=== PATIENT | female | born 1990 | race Caucasian/White ===

== ENCOUNTER 2017-02-01 15:30 | Emergency (ER) | payer SELFPAY ==
[~2017-02-01] VITALS: Ht 162.6 cm; Wt 51.5 kg
[~2017-02-01 15:30] MED LIST: FERR-31; PREN-39
[2017-02-01 15:34] VITALS: Ht 162.6 cm; Wt 51.5 kg
--- NOTE | 2017-02-01 18:38 | ERD ---
ER Documentation Chief Complaint Date/Time DATE: 02/01/17 TIME: 18:36 Chief Complaint LT LOWER ABD PAIN , 12 WEEKS PREG , NO VAG BLEED HPI T his is a 26-year-old female presents to the emergency department today complaining of some left-sided intermittent abdominal pain. States that sometimes when she gets the pain goes to her back. . States she is approximately 12 weeks and her last [facility] [employer] [facility] appointment was 2 3 weeks ago and everything was normal. States her next appointment is next week at [facility].Denies any dysuria, fevers or chills, vaginal bleeding. States she has not taken any medication for the pain.States she is worried she might lose her baby. ROS All systems reviewed and are negative except as per history of present illness. Medications Home Meds Active Scripts Acetaminophen* (Tylophen*) 500 Mg Capsule, 1 CAP PO Q6H Y for PAIN AND OR ELEVATED TEMP, #30 CAP Prov:ANISA CALLEJAS PA-C 02/01/17 Reported Medications Ferrous Sulfate (Iron Supplement) 1 Tab Tablet 11/07/10 Vits W-Ca,Fe,Fa(<1MG) ( Vitamins) 1 Tab Tablet 11/07/10 Allergies Allergies: Coded Allergies: No Known Drug Allergies (Verified Allergy, Mild, 11/25/10) Unknown: Unable to obtain (Verified , 11/24/10) PMhx/Soc History of Surgery: Yes (caesarian section 2010) Anesthesia Reaction: No Hx Neurological Disorder: No Hx Respiratory Disorders: No Hx Cardiac Disorders: No Hx Psychiatric Problems: No Hx Miscellaneous Medical Probl: No Hx Alcohol Use: No Hx Substance Use: No Hx Tobacco Use: No Physical Exam Vitals Vital Signs Date Time Temp Pulse Resp B/P Pulse Ox O2 Delivery O2 Flow Rate FiO2 02/01/17 15:34 98.1 90 18 108/64 98 Physical Exam Const: NAD Head: Atraumatic Eyes: Normal Conjunctiva ENT: Normal External Ears, Nose and Mouth. Neck: Full range of motion..~ No meningismus. Resp: Clear to auscultation bilaterally Cardio: Regular rate and rhythm, no murmurs Abd: Soft, mild left sided pelvic tenderness non distended. Normal bowel sounds. No tenderness at [place] Skin: No petechiae or rashes Back: No midline or flank tenderness Ext: No cyanosis, or edema Neur: Awake and alert Psych: Normal Mood and Affect Result Diagram: 02/01/17 1840 Results 24 hrs Laboratory Tests Test 02/01/17 18:40 White Blood Count 9.910^3/ul Red Blood Count 3.6610^6/ul Hemoglobin 12.2g/dl Hematocrit 34.7% Mean Corpuscular Volume 94.8fl Mean Corpuscular Hemoglobin 33.3pg Mean Corpuscular Hemoglobin Concent 35.2g/dl Red Cell Distribution Width 12.5% Platelet Count 64831^3/UL Mean Platelet Volume 11.3fl Neutrophils % 82.8% Lymphocytes % 11.2% Monocytes % 4.1% Eosinophils % 1.1% Basophils % 0.3% Nucleated Red Blood Cells % 0.0/100WBC Neutrophils # (Manual) 8.210^3/ul Lymphocytes # 1.110^3/ul Monocytes # 0.410^3/ul Eosinophils # 0.110^3/ul Basophils # 0.010^3/ul Nucleated Red Blood Cells # 0.010^3/ul Urine Color YELLOW Urine Clarity SLIGHTLY CLOUDY Urine pH 5.0 Urine Specific [place] 1.021 Urine Ketones 2+mg/dL Urine Nitrite NEGATIVEmg/dL Urine Bilirubin NEGATIVEmg/dL Urine Urobilinogen NEGATIVEmg/dL Urine Leukocyte Esterase NEGATIVELeu/ul Urine Microscopic RBC 7/HPF Urine Microscopic WBC 2/HPF Urine Squamous Epithelial Cells FEW/HPF Urine Mucus MANY/HPF Urine Hemoglobin 2+mg/dL Urine Glucose NEGATIVEmg/dL Urine Total Protein NEGATIVEmg/dl Beta HCG, Quantitative 675388.0mIU/ml DIAGNOSTIC IMAGING REPORT Patient: YASMANI IBRAHIM : 1990 Age: 26 Sex: F MR #: [id number] DOS: 02/01/17 1828 Ordering MD: ANISA CALLEJAS PA-C Location: [facility] Room/Bed: PROCEDURE: US OB. CLINICAL INDICATION: Maternal pelvic pain TECHNIQUE: Transabdominal and transvaginal views of the pelvis are available for review. COMPARISON: January 26, 2017 FINDINGS: Within the uterus, there is a single, live, viable, intrauterine . [place]-rump length: 7.74 cm heart rate: 144 beats per minute Ultrasound estimated gestational age: 13 weeks 6-day The estimated date of delivery is August 03, 2017 No ovarian or adnexal mass lesion is seen. There is no free fluid. There are no findings of placental abruption or definite previa. IMPRESSION: 1. Single live intrauterine with an estimated gestational age of 13 weeks 6 days. The estimated date of delivery is August 03, 2017. No acute abnormality is visualized. RPTAT: EE .Megan Walker MD, Date Time Electronically viewed and signed by .Megan Walker MD, MD on 02/01/2017 19:12 .F/ CC: ANISA CALLEJAS PA-C Procedures/MDM This is a A1 26-year-old femalewho presents to the emergency department today complaining of Intermittent left-sided abdominal pain. Patient states she is approximately 12 weeks . Given this I did obtain a complete OB workup. Laboratory workShows no elevated white blood cell count. She is not anemic. Platelets are within normal limits. UAIs negative for infection Beta quant hCG [id number] Rh status O+ Ultrasound She is a single live intrauterine with an estimated gestational age of 13 weeks and 6 days. Estimated date delivery is August 03, 2017 heart rate is 144 bpm. There is no ovarian adnexal mass seen there is no free fluid. There is no findings of placental abruption or previa. Patient symptoms at this time is consistent with pelvic pain in early . Patient is afebrile and otherwise well-appearing. I have low suspicion for ectopic , tubo ovarian abscess, ovarian torsion, diverticulitis. I have explained the results to the patient.She declined Tylenol here in the emergency department. She will given a prescription for home. At this time the patient is stable for discharge and outpatient management. Patient should follow up with their PCP in the next 1-2 days. They may return to the emergency department sooner for any persistent or worsening of symptoms. Patient understood and agreed with the plan. Departure Diagnosis: Primary Impression: Pelvic pain during Condition: Fair ANISA CALLEJAS PA-C Feb 01, 2017 18:38
[2017-02-01 19:03] LABS: BASOPHILS % 0.3 % (0.0-2.0); EOSINOPHILS # 0.1 10^3/ul (0.0-0.5); EOSINOPHILS % 1.1 % (0.0-7.0); HEMATOCRIT 34.7 % (37.0-47.0); HEMOGLOBIN 12.2 g/dl (12.0-16.0); LYMPHOCYTES # 1.1 10^3/ul (0.8-2.9); LYMPHOCYTES % 11.2 % (15.0-51.0); MEAN CORPUSCULAR HEMOGLOBIN 33.3 pg (29.0-33.0); MEAN CORPUSCULAR HGB CONC 35.2 g/dl (32.0-37.0); MEAN CORPUSCULAR VOLUME 94.8 fl (82.0-101.0); MEAN PLATELET VOLUME 11.3 fl (7.4-10.4); MONOCYTE # 0.4 10^3/ul (0.3-0.9); MONOCYTES % 4.1 % (0.0-11.0); NEUTROPHILS % 82.8 % (39.0-77.0); PLATELET COUNT 197 10^3/UL (140-415); RED BLOOD COUNT 3.66 10^6/ul (4.20-5.40); RED CELL DISTRIBUTION WIDTH 12.5 % (11.5-14.5); WHITE BLOOD COUNT 9.9 10^3/ul (4.8-10.8)
--- NOTE | 2017-02-01 19:13 | RADRPT ---
PROCEDURE: US OB. CLINICAL INDICATION: Maternal pelvic pain TECHNIQUE: Transabdominal and transvaginal views of the pelvis are available for review. COMPARISON: January 26, 2017 FINDINGS: Within the uterus, there is a single, live, viable, intrauterine . [place]-rump length:7.74 cm heart rate:144 beats per minute Ultrasound estimated gestational age:13 weeks 6-day The estimated date of delivery is August 03, 2017 No ovarian or adnexal mass lesion is seen. There is no free fluid. There are no findings of placenta l abruption or definite previa. IMPRESSION: 1. Single live intrauterine with an estimated gestational age of 13 weeks 6 days. The es timated date of delivery is August 03, 2017. No acute abnormality is visualized. RPTAT: EE .Megan Walker MD, Date Time Electronically viewed and signed by .Megan Walker MD, on 02/01/2017 19:12 .F/
[2017-02-01 19:14] LABS: ADD UMIC YES; UR ASCORBIC ACID NEGATIVE (NEGATIVE); UR BILIRUBIN (Dip) NEGATIVE (NEGATIVE); UR BLOOD (Dip) 2+ mg/dL (NEGATIVE); UR CLARITY SLIGHTLY CLOUDY (CLEAR); UR COLOR YELLOW (YELLOW); UR GLUCOSE (Dip) NEGATIVE (NEGATIVE); UR KETONES (Dip) 2+ mg/dL (NEGATIVE); UR LEUKOCYTE ESTERASE (Dip) NEGATIVE Leu/ul (NEGATIVE); UR MUCUS MANY /HPF (NONE SEEN); UR NITRITE (Dip) NEGATIVE (NEGATIVE); UR RBC 7 /HPF (0-5); UR SPECIFIC GRAVITY (Dip) 1.021 (1.003-1.030); UR SQUAMOUS EPITHELIAL CELL FEW /HPF (FEW); UR TOTAL PROTEIN (Dip) NEGATIVE (NEGATIVE); UR UROBILINOGEN (Dip) NEGATIVE (NEGATIVE)
[2017-02-01] MEDS ORDERED: ACET500C5 PO (20:19)
[2017-02-01 20:26] VITALS: BP 115/64; PULSE 72; RESP 18; TEMP 98.1
== END 2017-02-01 20:27 | disposition home or self-care (01) ==
LOC: FTE 15:30
DX: O26.891 Other specified pregnancy related conditions, first trimester (principal); R10.2 Pelvic and perineal pain; Z3A.13 13 weeks gestation of pregnancy
CPT/HCPCS: 36415; 76801; 81001; 84702; 85025; 86900; 86901

== ENCOUNTER 2017-07-03 23:05 | Inpatient (IN) | END 2017-07-08 14:35 | disposition home or self-care (01) | DRG 765 ==